=== PATIENT | female | born 1950 | race Caucasian/White ===

== ENCOUNTER 2016-09-24 18:59 | Emergency (ER) | payer OTHER ==
[~2016-09-24] VITALS: Ht 154.9 cm; Wt 85.0 kg
[~2016-09-24 18:59] MED LIST: LEVO.1 PO; LORA-392 PO; LORC10TA24 PO
[2016-09-24 19:05] VITALS: BP 138/97; PULSE 74; RESP 14; TEMP 97.6; O2SAT 99
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
== END 2016-09-24 20:32 | disposition home or self-care (01) ==
LOC: PHEFT 18:59
DX: S90.32XA Contusion of left foot, initial encounter (principal); E05.00 Thyrotoxicosis with diffuse goiter without thyrotoxic crisis or storm; V09.20XA Pedestrian injured in traffic accident involving unspecified motor vehicles, initial encounter; Y93.89 Activity, other specified; Y92.9 Unspecified place or not applicable; Y99.8 Other external cause status
CPT/HCPCS: 73630; 99283